=== PATIENT | female | born 1990 | race African-American/Black ===

== ENCOUNTER 2018-03-16 04:42 | Emergency (ER) | payer OTHER ==
[~2018-03-16] VITALS: Ht 231.1 cm; Wt 57.6 kg
[2018-03-16] MEDS ORDERED: PRENATAL + DHA1 EAC1 (04:48)
[2018-03-16] MEDS ORDERED: KEFLEX500 MG PO (07:57)
== END 2018-03-16 08:05 | disposition home or self-care (01) ==
LOC: ER 04:42
DX: O20.8 Other hemorrhage in early pregnancy (principal); O23.41 Unspecified infection of urinary tract in pregnancy, first trimester; Z34.01 Encounter for supervision of normal first pregnancy, first trimester

== ENCOUNTER 2018-07-23 16:42 | Outpatient (CLI) | payer OTHER ==
[~2018-07-23 16:42] MED LIST: KEFLEX500 MG PO; PRENATAL + DHA1 EAC1
== END 2018-07-24 11:02 | disposition home or self-care (01) ==
LOC: OBS/DEL 16:42
DX: O26.892 Other specified pregnancy related conditions, second trimester (principal); R10.2 Pelvic and perineal pain; Z34.02 Encounter for supervision of normal first pregnancy, second trimester; O98.812 Other maternal infectious and parasitic diseases complicating pregnancy, second trimester; B37.49 Other urogenital candidiasis

== ENCOUNTER 2018-08-01 12:09 | Outpatient (CLI) | payer OTHER | END 2018-08-02 17:39 | disposition home or self-care (01) | LOC: OBS/DEL 12:09 | DX: O26.893 Other specified pregnancy related conditions, third trimester (principal); R10.2 Pelvic and perineal pain; O99.513 Diseases of the respiratory system complicating pregnancy, third trimester; J45.909 Unspecified asthma, uncomplicated; Z34.03 Encounter for supervision of normal first pregnancy, third trimester ==

== ENCOUNTER 2018-08-29 21:43 | Outpatient (CLI) | payer OTHER ==
[2018-08-29] MEDS ORDERED: IRON236 MG PO (22:11)
== END 2018-08-30 17:42 | disposition home or self-care (01) ==
LOC: OBS/DEL 21:43
DX: O26.893 Other specified pregnancy related conditions, third trimester (principal); R10.2 Pelvic and perineal pain; Z34.03 Encounter for supervision of normal first pregnancy, third trimester

== ENCOUNTER 2018-09-27 23:06 | Outpatient (CLI) | payer OTHER ==
[~2018-09-27 23:06] MED LIST changes: +IRON236 MG PO
[2018-09-27] MEDS ORDERED: ALBUTEROL0.63 MG/3 IH (23:31)
== END 2018-09-29 16:00 | disposition home or self-care (01) ==
LOC: OBS/DEL 23:06
DX: O23.43 Unspecified infection of urinary tract in pregnancy, third trimester (principal); O47.1 False labor at or after 37 completed weeks of gestation; Z34.03 Encounter for supervision of normal first pregnancy, third trimester

== ENCOUNTER 2018-10-11 08:45 | Inpatient (IN) | payer OTHER ==
[~2018-10-11] VITALS: Ht 149.9 cm; Wt 3.2 kg
[~2018-10-11 08:45] MED LIST changes: +ALBUTEROL0.63 MG/3 IH
== END 2018-10-22 14:40 | DRG 785 ==
LOC: SURH 08:45 → O/R 10-18 06:00 → OB/GYN 10-18 08:00
PROVIDERS: ADMIT Obstetrics & Gynecology
PROC: 0UB60ZZ Excision of Left Fallopian Tube, Open Approach (ICD-10-PCS; 2018-10-18)
PROC: 4A0HXFZ Measurement of Products of Conception, Cardiac Rhythm, External Approach (ICD-10-PCS; 2018-10-18)
PROC: 10D00Z1 Extraction of Products of Conception, Low, Open Approach (ICD-10-PCS; principal; 2018-10-18 08:00)
DX: O82 Encounter for cesarean delivery without indication (principal); O64.1XX0 Obstructed labor due to breech presentation, not applicable or unspecified; N83.8 Other noninflammatory disorders of ovary, fallopian tube and broad ligament; Z37.0 Single live birth; Z3A.39 39 weeks gestation of pregnancy